=== PATIENT | female | born 1955 | race Two or more races ===

== ENCOUNTER 2024-07-03 17:29 | Emergency (ER) | payer OTHER ==
[~2024-07-03] VITALS: Ht 157.5 cm; Wt 63.5 kg
[2024-07-03] MEDS ORDERED: AVALIDE 300-121 EACH PO (18:23)
[2024-07-03] MEDS ORDERED: CRESTOR40 MG PO (18:23)
[2024-07-03] MEDS ORDERED: FAMOTIDINE/PF 20 MG in 0.9 % SODIUM CHLORIDE 8 ML IV PUSH STA (18:55)
[2024-07-03] MEDS ORDERED: 0.9 % SODIUM CHLORIDE 1,000 ML IV SCH (19:00)
[2024-07-03] MEDS ORDERED: ONDANSETRON HCL 2 MG/ML VIAL IV ONE (19:00)
[2024-07-03] MEDS ORDERED: ONDANSETRON HCL 2 MG/ML VIAL ONE (19:01)
[2024-07-03] MEDS ORDERED: FAMOTIDINE/PF 20 MG/2 ML VIAL ONE (19:01)
[2024-07-03 19:26] LABS: HEMATOCRIT 42.4 % (36.0-45.00); HEMOGLOBIN 14.1 g/dL (12.0-15.00); MEAN CELL VOLUME 91.1 fL (80.00-100.00); MEAN CORPUSCULAR HEMOGLOBIN 30.3 pg (27.00-32.0); MEAN CORPUSCULAR HGB CONC 33.3 g/dl (32.0-36.0); PLATELET COUNT 138 K/uL (150-450); RED BLOOD COUNT 4.65 M/uL (4.00-6.00); RED CELL DISTRIBUTION WIDTH 14.3 % (11.5-14.5)
[2024-07-03 20:04] LABS: ALBUMIN 3.6 gm/dL (3.4-5.0); ALKALINE PHOSPHATASE 59 U/L (50-136); ALT/SGPT 54 U/L (12-78); AMYLASE 58 U/L (25-115); ANION GAP 9 (10.0-20.0); AST/SGOT 68 U/L (15-37); BILIRUBIN TOTAL 0.44 mg/dL (0.3-1.2); BLOOD UREA NITROGEN 11 mg/dL (7-18); BUN CREA RATIO 15 (7.0-25.0); CALCIUM 9.2 mg/dL (8.5-10.1); CARBON DIOXIDE 30 mEq/L (21-32); CHLORIDE 102 mmol/L (98-107); CREATININE SERUM 0.72 mg/dL (0.55-1.02); GFR 80.79; GLOBULINA 3.9 G/DL (2.4-3.5); GLUCOSE FASTING 108 mg/dL (65-100); LIPASE 37 U/L (13-75); OSMOLALITY SERUM 274 MOSM/KG (275-295); POTASSIUM 3.95 mEq/L (3.5-5.1); SODIUM 137 mmol/L (136-145); TOTAL PROTEIN 7.5 gm/dL (6.4-8.2)
[2024-07-03] MEDS ORDERED: ONDANSETRON ODT8 MG PO (21:11)
[2024-07-03] MEDS ORDERED: PEPCID AC20 MG PO (21:11)
[2024-07-03 22:02] LABS: BILIRUBIN,CONJUGATED < 0.10 mg/dL (0.0-0.2); BILIRUBIN,UNCONJUGATED 0.34 mg/dL (0.0-0.6)
== END 2024-07-03 21:41 | disposition home or self-care (01) ==
LOC: ER 17:31
PROVIDERS: General Practice
DX: B34.9 Viral infection, unspecified (principal); Z20.822 Contact with and (suspected) exposure to COVID-19; Z88.0 Allergy status to penicillin; Z88.8 Allergy status to other drugs, medicaments and biological substances

== ENCOUNTER 2024-07-05 13:17 | Emergency (ER) | payer OTHER ==
[~2024-07-05] VITALS: Ht 157.5 cm; Wt 63.5 kg
[~2024-07-05 13:17] MED LIST: AVALIDE 300-121 EACH PO; CRESTOR40 MG PO; ONDANSETRON ODT8 MG PO; PEPCID AC20 MG PO
[2024-07-05 13:49] VITALS: BP 113/72; O2SAT 100
== END 2024-07-05 14:23 | disposition home or self-care (01) ==
LOC: ER 13:20
DX: B34.9 Viral infection, unspecified (principal); Z88.0 Allergy status to penicillin; Z88.8 Allergy status to other drugs, medicaments and biological substances

== ENCOUNTER 2025-02-08 10:24 | Emergency (ER) | payer OTHER ==
[~2025-02-08] VITALS: Ht 157.5 cm; Wt 63.5 kg
[2025-02-08] MEDS ORDERED: GUAIFEN/DEXTROMETHORPHAN/PE 10 ML BLIST.PACK PO ONE ×2 (12:45→13:09)
[2025-02-08 13:34] LABS: BASO % 0.2 % (0.1-1.2); EOS # 0.00 (0.04-0.54); EOS % 0.0 % (0.7-7.0); LYMPH # 0.86 (1.18-3.74); LYMPH % 20.4 % (19.3-53.1); MEAN PLATELET VOLUME 11.00 fl (9.4-12.4); MONO # 0.66 (0.24-0.82); NEUT # 2.67 (1.56-6.13); NEUT % 63.5 % (34.0-71.1); RED CELL DISTRIBUTION WIDTH 13.1 % (11.6-14.4)
[2025-02-08 13:36] LABS: MONO % 15.7 % (4.7-12.5)
[2025-02-08 13:56] LABS: COVID-19 AG NEGATIVE (NEGATIVE)
[2025-02-08] MEDS ORDERED: OSEL75CA PO (14:04)
[2025-02-08] MEDS ORDERED: ACETAMINOPHEN500 M1 PO (14:05)
[2025-02-08] MEDS ORDERED: GILTUSS COUGH-118 M1 PO (14:05)
[2025-02-08] MEDS ORDERED: OSELTAMIVIR PHOSPHATE 75 MG CAPSULE PO ONE ×2 (14:09→14:15)
== END 2025-02-08 14:47 | disposition home or self-care (01) ==
LOC: ER 10:30
PROVIDERS: Preventive Medicine Public Health & General Preventive Medicine
DX: J10.1 Influenza due to other identified influenza virus with other respiratory manifestations (principal); R50.9 Fever, unspecified; R05.9 Cough, unspecified; R11.2 Nausea with vomiting, unspecified; M79.10 Myalgia, unspecified site; R09.89 Other specified symptoms and signs involving the circulatory and respiratory systems; Z20.822 Contact with and (suspected) exposure to COVID-19; I10 Essential (primary) hypertension; Z88.0 Allergy status to penicillin; Z88.8 Allergy status to other drugs, medicaments and biological substances